=== PATIENT | female | born 1970 | race Caucasian/White ===

== ENCOUNTER 2020-05-07 05:48 | Day surgery (SDC) | payer OTHER, SELFPAY ==
[~2020-05-07] VITALS: Ht 149.9 cm; Wt 61.2 kg
[2020-05-07] MEDS ORDERED: fentaNYL citrate 0.05 MG/ML VIAL ONE (07:58)
[2020-05-07] MEDS ORDERED: diphenhydrAMINE 50 MG/ML VIAL ONE (07:58)
[2020-05-07] MEDS ORDERED: MIDAZOLAM 5 MG/5 ML VIAL ONE (07:59)
[2020-05-07] MEDS ORDERED: fentaNYL citrate 0.05 MG/ML VIAL IVP ONE (08:40)
[2020-05-07] MEDS ORDERED: MIDAZOLAM 2 MG/2 ML VIAL IVP ONE (08:40)
== END 2020-05-07 08:55 | disposition home or self-care (01) ==
LOC: MDS 05:48 → MMU 05:49 → MDS 08:55
PROVIDERS: ATTEND Internal Medicine Gastroenterology
DX: R10.13 Epigastric pain (principal); K21.9 Gastro-esophageal reflux disease without esophagitis; Z90.49 Acquired absence of other specified parts of digestive tract; Z88.0 Allergy status to penicillin; Z88.5 Allergy status to narcotic agent; Z88.6 Allergy status to analgesic agent; Z20.828 Contact with and (suspected) exposure to other viral communicable diseases
CPT/HCPCS: 43239; 81025; 88305; 88312; 88313; J2250; J3010; U0003; J1200